=== PATIENT | male | born 2005 | race Two or more races ===

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

== ENCOUNTER 2025-02-22 02:54 | Emergency (ER) | payer MEDICAID ==
[~2025-02-22] VITALS: Ht 177.8 cm; Wt 86.1 kg
--- NOTE | 2025-02-22 03:01 | ED.PDOC ---
History of Present Illness HPI Comments 19-year-old male presents with mother for chief complaint of left ankle swelling and pain status post mechanical fall injury. Patient reports on slipping and rolling his ankle, earlier, this morning. He denies any further injuries or additional symptoms. Chief Complaint: Lower Extremity Time Seen by MD: 02:58 Primary Care Provider: NONE Reviewed Notes: Nurses Notes, Medications, Allergies Allergies: Coded Allergies: NO KNOWN ALLERGIES (Unverified , 05/07/21) Information Source: Patient Mode of Arrival: Ambulatory Severity: Moderate Duration: Since onset Prehospital treatment: None Past Medical History PAST MEDICAL HISTORY: Asthma Surgical History: Denies all surgeries Family History Family History: Reviewed,noncontributory to illness Social History Smoker: Non-Smoker Alcohol: Denies ETOH Use Drugs: Marijuana Lives In: Home All Other Systems: Reviewed and Negative (Comprehensive review of systems are negative unless otherwise stated in HPI) Physical Exam General Appearance: No Apparent Distress, Normal HEENT: Pharynx Normal Neck: Full Range of Motion, Non-Tender Respiratory: Chest Non-Tender, Lungs Clear, No Respiratory Distress, Normal Breath Sounds Cardiovascular: No Edema, No JVD, No Murmur, No Gallop, Normal Peripheral Pulses, Regular Rate/Rhythm Breast Exam: Deferred Gastrointestinal: Non Tender, Soft Genitalia: Deferred Pelvic: Deferred Rectal: Deferred Extremities: No calf tenderness, Normal capillary refill, Normal range of motion Musculoskeletal : Location: Left Extremity Location: Ankle (Moderate edema lateral aspect strength sensory motion intact) Apperance: Normal Neurologic: Alert, No Motor Deficits, Normal Affect, Normal Mood, No Sensory Deficits Cerebellar Function: Normal Reflexes: NOT DONE Skin: Dry, Normal Color, Warm Lymphatic: No Adenopathy Was a procedure done? Was a procedure done?: No Differential Dx Considerations may include: Fractures, dislocation, strain, sprain, neurovascular injury, contusions, among others X-Ray, Labs, Meds, VS Vital Signs Date Time Temp Pulse Resp B/P (MAP) Pulse Ox O2 Delivery O2 Flow Rate FiO2 02/22/25 03:28 Room Air* 0 21 02/22/25 03:27 98.6 93 16 139/90 (106) 98 98.6 02/22/25 02:56 98.5 110 20 159/95 96 98.5 X-Ray, Labs, Meds, VS Comment Script trial of NSAID advised take medication as prescribed side effects discussed. Advised on RICE Advised to follow up with PCP in 2-3 days as necessary IF symptoms persist. Advised on ER return precautions for increasing pain, numbness, weakness. Patient indicates understanding agrees with discharge plan of care. Images Reviewed?: Images reviewed and evaluated by me Time of 1ST Reevaluation: 02:58 Reevaluation 1ST: Unchanged Time of 2ND Reevaluation: 03:50 Reevaluation 2ND: Improved Patient Education/Counseling: Diagnosis, Treatment, Need For Follow Up Family Education/Counseling: Diagnosis, Treatment, Need For Follow Up SEPSIS Sepsis Screen Physician Orders L Ankle 3 View (02/22/25 03:08) Apply Ice To Affected Area (02/22/25 03:08) Splints (02/22/25 ) Dme: Crutches (02/22/25 03:45) Vital Signs Date Time Temp Pulse Resp B/P (MAP) Pulse Ox O2 Delivery O2 Flow Rate FiO2 02/22/25 03:28 Room Air* 0 21 02/22/25 03:27 98.6 93 16 139/90 (106) 98 98.6 02/22/25 02:56 98.5 110 20 159/95 96 98.5 Departure 1 Departure Time of Disposition: 03:48 Impression: Primary Impression: Left ankle sprain Qualified Codes: S93.402A - Sprain of unspecified ligament of left ankle, initial encounter Disposition: HOME / SELF CARE / HOMELESS Condition: Stable e-Prescriptions Ibuprofen (Ibuprofen) 800 Mg Tab 800 MG PO Q8HP PRN for 6 Days, #18 TAB Prov: PJ GAGE 02/22/25 Discharged With: Self Critical Care Note Critical Care Time?: No Stability Stability form required: No Heart Score Heart Score: Heart Score Response (Comments) Value History N/A 0 EKG N/A 0 Age N/A 0 Risk Factors N/A 0 Troponin N/A 0 Total 0 I personally scribed for ER ([email or web address]) on 02/22/25 at 03:01. Electronically submitted by Gelacio Montague ([email or web address]). I personally scribed for ER ([email or web address]) on 02/22/25 at 03:32. Electronically submitted by Gelacio Montague ([email or web address]). ER Feb 22, 2025 03:01 PJ GAGE Feb 22, 2025 03:29
[2025-02-22] MEDS: IBUPROFEN 800 MG TAB PO ONE (03:26)
[2025-02-22 03:27] VITALS: BP 139/90; PULSE 93; RESP 16; TEMP 98.6; O2SAT 98
--- NOTE | 2025-02-22 03:39 | DVH ---
CLINICAL INDICATION: Status post injury/lateral edema TECHNIQUE: XY L ANKLE 3 VIEW Comparison: None FINDINGS/IMPRESSION: : There is no evidence of acute fracture or dislocation. Soft tissues are unremarkable.
[2025-02-22] MEDS ORDERED: IBUP-1456 PO (03:50)
== END 2025-02-22 04:04 | disposition home or self-care (01) ==
LOC: ER 02:54
DX: S93.402A Sprain of unspecified ligament of left ankle, initial encounter (principal); J45.909 Unspecified asthma, uncomplicated; X58.XXXA Exposure to other specified factors, initial encounter; Y93.89 Activity, other specified; Y92.89 Other specified places as the place of occurrence of the external cause; Y99.8 Other external cause status
CPT/HCPCS: 73610